=== PATIENT | male | born 1990 | race Caucasian/White ===

== ENCOUNTER 2017-12-04 13:29 | Outpatient (CLI) | payer OTHER | END 2017-12-04 13:30 | disposition home or self-care (01) | LOC: BICCT 13:29 | PROVIDERS: ATTEND Psychiatry & Neurology Neurology | DX: R51 Headache (principal) | CPT/HCPCS: 70486 ==

== ENCOUNTER 2018-01-27 16:16 | Emergency (ER) | payer OTHER ==
[2018-01-27] MEDS ORDERED: Ketorolac Tromethamine 30 MG/ML VIAL ONE (19:07)
[2018-01-27] MEDS ORDERED: Ondansetron ODT 4 MG TAB ONE (19:07)
[2018-01-27] MEDS ORDERED: Morphine 4 MG/ML VIAL ONE (19:18)
[2018-01-27] MEDS ORDERED: Dexamethasone 4 mg/ml Vial ONE (21:06)
== END 2018-01-27 21:17 | disposition home or self-care (01) ==
LOC: ERS 16:16
DX: G50.0 Trigeminal neuralgia (principal); Z87.891 Personal history of nicotine dependence; Z79.899 Other long term (current) drug therapy
CPT/HCPCS: 96372; J1100; J1885; J2270; Q0162